=== PATIENT | male | born 1995 | race Caucasian/White ===

== ENCOUNTER 2017-11-23 16:55 | Emergency (ER) | payer MEDICAID ==
[2017-11-23] MEDS ORDERED: oxyCODONE 5 MG Tab PO ONE (17:23)
--- NOTE | 2017-11-24 09:17 | EDM.PDOC ---
ED HPI GENERAL MEDICAL PROBLEM - General Chief Complaint: Lower Extremity Injury/Pain Stated Complaint: hurt left foot Time Seen by Provider: 11/23/17 17:10 Source of Information: Reports: Patient History Limitations: Reports: No Limitations - History of Present Illness INITIAL COMMENTS - FREE TEXT/NARRATIVE: This is a 22yo M here for left foot pain after catching it on ice. 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 Patient states he has been unable to bear weight and there is extreme pain with movement and touch. Onset: Sudden Duration: Hour(s):, Constant Location: Reports: Lower Extremity, Left Review of Systems - Review of Systems Review Of Systems: ROS reveals no pertinent complaints other than HPI. ED EXAM, GENERAL - Physical Exam Exam: See Below Exam Limited By: No Limitations General Appearance: Alert, WD/WN, Mild Distress Respiratory/Chest: No Respiratory Distress, Rhonchi Cardiovascular: Normal Peripheral Pulses, Regular Rate, Rhythm Peripheral Pulses: 2+: Dorsalis Pedis (L), Dorsalis Pedis (R) Extremities: Increased Warmth, Other (swelling and tenderness of dorsum of left foot) Neurological: Alert, Oriented, CN II-XII Intact Course - Orders/Labs/Meds Orders: Active Orders 24 hr Category Date Time Status Foot Comp Min 3V Lt [CR] Stat Exams 11/23/17 17:22 Taken Meds: Medications Discontinued Medications Generic Name Dose Route Start Last Admin Trade Name Sanfordq PRN Reason Stop Dose Admin Oxycodone HCl 5 mg 11/23/17 17:23 11/23/17 17:24 Oxycodone PO 11/23/17 17:24 5 mg ONETIME ONE Administration Departure - Departure Time of Disposition: 18:15 Disposition: Home, Self-Care 01 Condition: Fair Clinical Impression: Fracture of metatarsal bone of left foot Qualifiers: Encounter type: initial encounter Metatarsal bone: second Fracture type: closed Fracture alignment: nondisplaced Qualified Code(s): S92.325A - Nondisplaced fracture of second metatarsal bone, left foot, initial encounter for closed fracture - Discharge Information Instructions: Metatarsal Fracture Referrals: PCP,None [Primary Care Provider] - Forms: ED Department Discharge Additional Instructions: Called [facility] call and discussed with Dr. Tejada. He recommended a splint and for patient to arrive at his clinic at 9 am or earlier for evaluation. Percocet sent with patient. Aircast boot placed as splint. Counseled on non- weightbearing and compliance. Discussed icing and swelling of foot. Follow up with orthopedics at [facility] at 0900 tomorrow morning. You will be seeing Dr. Tejada. - My Orders Last 24 Hours: My Active Orders 11/23/17 17:22 Foot Comp Min 3V Lt [CR] Stat - Assessment/Plan Last 24 Hours: My Active Orders 11/23/17 17:22 Foot Comp Min 3V Lt [CR] Stat
--- NOTE | 2017-11-25 13:11 | CR ---
DATE OF SERVICE: 11/23/17 CLINICAL DATA: foot injury LEFT FOOT: No priors. No acute fracture or dislocation. No lytic or blastic bone lesions. [id number] [facility]
== END 2017-11-23 18:00 | disposition home or self-care (01) ==
LOC: LB.ED 16:55
DX: S92.325A Nondisplaced fracture of second metatarsal bone, left foot, initial encounter for closed fracture (principal); W23.1XXA Caught, crushed, jammed, or pinched between stationary objects, initial encounter; Y92.89 Other specified places as the place of occurrence of the external cause; Y99.0 Civilian activity done for income or pay
CPT/HCPCS: 73630-LT; 99283; A9270-GY

== ENCOUNTER 2022-07-07 21:00 | Emergency (ER) | payer MEDICAID ==
[2022-07-07] MEDS ORDERED: Diphtheria,Pertussis(Acell),Tetanus Vaccine 0.5 ML SDV IM ONE (21:16)
[2022-07-07] MEDS ORDERED: Amoxicillin/Clavulanate K 875-125 MG Tab PO ONE (21:17)
[2022-07-07] MEDS ORDERED: Ondansetron 4 MG Tab.DIS PO ONE (21:38)
== END 2022-07-07 22:10 | disposition home or self-care (01) ==
LOC: LB.ED 21:00
DX: S41.151A Open bite of right upper arm, initial encounter (principal); Z23 Encounter for immunization; Z86.73 Personal history of transient ischemic attack (TIA), and cerebral infarction without residual deficits; W54.0XXA Bitten by dog, initial encounter
CPT/HCPCS: 90471; 90715; 99281; 99283-25; A9270-GY; Q0162

== ENCOUNTER 2023-06-17 03:52 | Emergency (ER) | payer MEDICAID ==
[2023-06-17 05:08] LABS: ACETAMINOPHEN 10.2 ug/mL
[2023-06-17 05:28] LABS: PROTHROMBIN TIME 10.2 sec (9.0-11.5)
[2023-06-17 05:48] LABS: ALBUMIN 3.5 g/dL (3.4-5.0); BILIRUBIN DIRECT 0.1 mg/dL (0.0-0.3); BILIRUBIN TOTAL 0.3 mg/dL (0.0-1.0); PROTEIN TOTAL,TP 7.6 g/dL (6.4-8.2)
== END 2023-06-17 06:15 | disposition home or self-care (01) ==
LOC: LB.ED 03:52
DX: K02.9 Dental caries, unspecified (principal); E66.9 Obesity, unspecified; Z68.42 Body mass index [BMI] 45.0-49.9, adult; Z77.22 Contact with and (suspected) exposure to environmental tobacco smoke (acute) (chronic)
CPT/HCPCS: 36415; 80143; 82040; 82247; 82248; 84075; 84155; 84450; 84460; 85610; 99282; 99283

== ENCOUNTER 2024-02-19 15:31 | Emergency (ER) | payer MEDICAID | END 2024-02-19 16:17 | disposition home or self-care (01) | LOC: LB.ED 15:31 | DX: H66.3X1 Other chronic suppurative otitis media, right ear (principal); J01.00 Acute maxillary sinusitis, unspecified; H10.31 Unspecified acute conjunctivitis, right eye; E66.9 Obesity, unspecified; Z79.899 Other long term (current) drug therapy; Z86.19 Personal history of other infectious and parasitic diseases | CPT/HCPCS: 99283 ==